=== PATIENT | female | born 1995 | race Caucasian/White ===

== ENCOUNTER 2019-12-10 09:52 | Emergency (ER) | payer OTHER, SELFPAY ==
[2019-12-10 10:03] VITALS: BP 123/73; PULSE 93; RESP 16; TEMP 37.1; O2SAT 100
--- NOTE | 2019-12-10 10:04 | ED.GENADULT ---
HPI - General Adult General Chief complaint: Skin/Abscess/Foreign Body Stated complaint: Cyst on Back Time Seen by Provider: 12/10/19 10:33 Source: patient and RN notes reviewed Mode of arrival: ambulatory Limitations: no limitations History of Present Illness HPI narrative: This patient has had a 5-year history of a cyst on the upper posterior thoracic area, but then during the past month the skin overlying that has become red and slightly tender and intermittently it is drained a fluid that sometimes a yellowish color. She has not had any fever. She has not had any history of eczema, psoriasis, or MRSA. She has not had any treatment for this. She has not had any other symptoms such as ear pain, nasal drainage, sore throat, fever, or cough. She has noticed no other skin lesions globally. She has had no known exposure to anyone with strep throat, mono, influenza, bronchitis, pneumonia that she is aware of. She has not been traveling. Related Data Allergies Allergy/AdvReac Type Severity Reaction Status Date / Time No Known Allergies Allergy Unverified 12/10/19 10:16 Review of Systems Review of Systems: Narrative: CONSTITUTIONAL: Denies fever, chills, or sweats. Noncontributory except as pertains to the past medical history and the history of present illness. EYES: Denies visual changes, redness, or discharge. ENT: Denies rhinorrhea, congestion, sore throat, or otalgia. CARDIOVASCULAR: Denies chest pain, palpitations, or edema. RESPIRATORY: Denies cough or dyspnea. GASTROINTESTINAL: Denies abdominal pain, nausea, vomiting, or diarrhea. GENITOURINARY: Denies dysuria or hematuria. SKIN: Denies rash or itching. MUSCULOSKELETAL: Denies back pain, joint pain, or myalgia. NEUROLOGIC: Denies headache, numbness, or weakness. PSYCHIATRIC: Denies anxiety or depression. [facility] Family History Family History (Updated 02/05/17 @ 23:56 by DOCTOR UNKNOWN) Grandparent Diabetes mellitus, Onset Age: 79 Cerebrovascular accident, Onset Age: 79 Other Family history of coronary artery disease Social History Social History Smoking status: Never smoker Second hand tobacco smoke exposure: No Alcohol intake: never Comments At time of signature, I have reviewed and agree with nursing past medical, surgical, social, and family history.Please see nursing chart for further information. There is no relevant family history pertinent to the presenting complaint. Exam Narrative: Exam Narrative: GENERAL: Well-appearing, well-nourished, and in no acute distress. HEAD: Normocephalic, atraumatic. EYES: PERRLA and EOMI. EARS: TM's clear bilaterally and the canals are clear. NOSE: Nares clear, no rhinorrhea or epistaxis. THROAT:Mucous membranes moist.Oropharynx normal without erythema or exudates. NECK: Supple. No adenopathy of the neck, supraclavicular, axillary, or inguinal areas. RESPIRATORY: No respiratory distress. Airway patent. Respirations non-labored. Clear to auscultation. There are no wheezes, no rales, no retractions, no use accessory muscle respirations. Patient's not cyanotic and not dyspneic. HEART: Regular rate and rhythm. No murmur heard. normal peripheral pulses. ABDOMEN: Soft, nontender, nondistended, normal active bowel sounds.No masses. NO rebound or guarding, No organomegaly. There is no CVA pain. No pain McBurney's point. She has a negative Diaz sign and negative Rovsing sign. There are no pulsatile masses no audible bruits. EXTREMITIES: No clubbing/cyanosis/ edema. Normal strength & range of motion. SKIN: Warm, dry.Normal Color. The skin exam shows that the patient has a 2 cm long by 1/2 cm wide sebaceous cyst with the overlying skin tissue mildly reddened and slightly tender to touch, but not severely so. There is no drainage noted today. There is no dressing on this and no drainage on her clothes either. There are no other skin lesions globally. There are no puncture de jesus or evidence of any insect bites. No e
== END 2019-12-10 10:45 | disposition home or self-care (01) ==
PROVIDERS: Emergency Provider Family Medicine
DX: L03.312 Cellulitis of back [any part except buttock and flank] (principal)
CPT/HCPCS: 99213; G0463

== ENCOUNTER 2019-12-19 19:12 | Emergency (ER) | payer OTHER, SELFPAY ==
--- NOTE | ~2019-12-19 | XR_ITS ---
XR abdomen/kub 1V 12/19/2019 22:25 Indication: Right-sided abdominal pain Procedure: KUB Comparison: CT dated 12/19/2019 Findings: There is a 7 mm right UVJ stone. There is a left renal stone measuring approximately 7 mm. There are left-sided pelvic phleboliths. Bowel gas pattern is nonobstructive. Lung bases unremarkable . Impression: 1: 7 mm right UVJ stone. 2: Left nephrolithiasis. Reviewed, dictated and finalized at location A. R PATTERN INSPECTOR Impression: 1: 7 mm right UVJ stone. 2: Left nephrolithiasis.
--- NOTE | ~2019-12-19 | CT_ITS ---
EXAMINATION: CT abdomen pelvis wo con DATE: 12/19/2019 21:13 INDICATION: Flank pain TECHNIQUE: Computed tomography (CT) of the abdomen and pelvis was performed without intravenous contr ast. The dose-length product was 888.25 mGy-cm. Automated exposure control and iterative reconstructi on technique were employed. COMPARISON: None. FINDINGS: Heart size is normal. No significant pleural or pericardial effusion. Lung bases are unrema rkable. No significant vascular abnormality. Fatty infiltration of the liver. Gallbladder is present. The spleen, pancreas, adrenal glands are unr emarkable. There are nonobstructing left renal stones, largest measuring 5 mm. There is a 6 x 3 mm ri ght UVJ stone with moderate right hydroureteronephrosis. There is right perinephric stranding. There is a small fecalith at the origin of the appendix. No evidence for acute appendicitis. Small amount o f free fluid in the pelvis. Prominent left ovary, likely containing a 3 cm cyst. There is inflammatio n adjacent to the proximal sigmoid colon, likely representing epiploic appendagitis rather than diver ticulitis. No free air. No acute osseous abnormality.. IMPRESSION: 1. 6 mm right UVJ stone with moderate right hydroureteronephrosis and perinephric edema. 2: Nonobstructing left nephrolithiasis. 3: Inflammatory changes adjacent to the proximal sigmoid colon, likely epiploic appendagitis rather t farias diverticulitis. 4: Probable 3 cm left ovarian cyst. Small amount of free fluid in the pelvis, likely physiologic. Reviewed, dictated and finalized at location A. TRONIC BENCH TECHNICIAN IMPRESSION: 1. 6 mm right UVJ stone with moderate right hydroureteronephrosis and perinephr ic edema. 2: Nonobstructing left nephrolithiasis. 3: Inflammatory changes adjacent to the proximal sigmoid colon, likely epiploic appendagitis rather than diverticulitis. 4: Probable 3 cm left ovarian cyst. Small amount of free fluid in the pelvis, l ikely physiologic.
[2019-12-19 19:20] VITALS: BP 130/79; PULSE 118; RESP 18; TEMP 36.2; O2SAT 100
--- NOTE | 2019-12-19 19:57 | ED.ABDPAIN ---
HPI - Abdominal Pain General Chief Complaint: Abdominal Pain Stated Complaint: abd pain Time Seen by Provider: 12/19/19 19:50 Source: patient Mode of arrival: ambulatory Limitations: no limitations History of Present Illness HPI narrative: A 24 y/o female presents to the ED with c/o cramping RUQ abdominal pain that radiates to her right flank and lower back. Pt states that the abdominal pain has been intermittent since September 2019. She notes that the flank pain is aggravated when she eats fast food. Pt adds that she has been avoiding fast food with some relief, but ate fast food this weekend when her family was in town. She reports that she ate a taco and a breakfast sandwich from [employer] this weekend. Pt states that she has never been formally diagnosed with IBS, but she believes she has it based on Google searches. Today, she notes that her episode started at 0930 and has been constant since. She adds that this is abnormal for her episodes, so she decided to come to the ED. Pt reports N/V and loose stools, but denies fever and dysuria. She adds that she has occasional diarrhea and constipation with her episodes, and her bowel movements normally alleviate the pain. Pt had a bowel movement today and it did not alleviate the abdominal pain which is abnormal for her. Her daughter has been sick recently, but with different symptoms. She is currently taking Ciprofloxacin for an infected sebaceous cyst with cellulitis. MD elicited complaint: abdominal pain Onset (ago): month(s) (3) Pain Consistency: intermittent Location: RUQ Severity: similar to previous episodes Quality: cramping Radiation: R flank and back (Lower) Exacerbating factors: eating (Fast food) Context: confirms sick contacts and confirms recent antibiotic use Associated symptoms: nausea, vomiting and other (Loose stools) Related Data Allergies Allergy/AdvReac Type Severity Reaction Status Date / Time No Known Allergies Allergy Unverified 12/19/19 19:38 Review of Systems Review of Systems: All systems reviewed & are unremarkable except as noted in HPI and below Constitutional: Constitutional: Denies fever(s) Gastrointestinal: Gastrointestinal: Reports abdominal pain (RUQ that radiates to right flank and lower back), Reports loose stools, Reports nausea and Reports vomiting Genitourinary: Genitourinary: Denies dysuria PMFSH Past Medical History Medical History (Updated 12/19/19 @ 22:14 by Bert Helton MD) Cellulitis Depression Thalassemia Surgical History Surgical History (Updated 12/19/19 @ 20:43 by Zhanna Grubbs) No pertinent past surgical history Family History Family History Grandparent Diabetes mellitus, Onset Age: 79 Cerebrovascular accident, Onset Age: 79 Other Family history of coronary artery disease Social History Social History Smoking status: Never smoker Second hand tobacco smoke exposure: No Alcohol intake: never Gender identity (if verbalized by the patient): Female Exam Const: General: healthy appearing, no acute distress and well developed Nutritional Appearance: well nourished Orientation/consciousness: patient oriented x3 (alert) and Other orientation findings (Alert) Limitations: no limitations HENMT: Head: normocephalic and atraumatic Ears: external ears normal General nose exam: No nasal discharge present and no epistaxis Face and sinus: face symmetric Mouth: Yes lip normal, Yes tongue normal and Yes moist mucous membranes Throat: other (No exudate, no erythema) Eyes: Conjunctivae: conjunctivae normal Sclera: sclerae normal EOM: EOMs intact bilaterally Neck: Neck: full ROM, no lymphadenopathy and supple Thyroid: thyroid normal Chest: Chest palpation & inspection: no tenderness Resp: Effort & Inspection: normal respiratory effort Auscultation: clear to auscultation bilaterally, no rales, no rhonchi, no
[2019-12-19 20:25] LABS: Basophils Percent Auto 0.1 % (0.2-1.2); Eosinophils Percent Auto 0.1 % (0-4.4); Hemoglobin 11.6 g/dL (12.0-15.0); Immature Granulocyte Absolute 0.04 K/mm3 (0.00-0.031); Immature Granulocyte Percent A 0.3 % (0-0.5); Lymphocytes Absolute Auto 0.95 K/mm3 (0.9-3.2); Lymphocytes Percent Auto 6.5 % (18.3-44.2); Mean Corpuscular HGB Conc 32.2 g/dl (32-36); Mean Corpuscular Hemoglobin 23.4 pg (26-34); Mean Corpuscular Volume 72.6 fl (80-100); Mean Platelet Volume 10.2 fl (7.4-10.4); Monocytes Absolute Auto 0.5 K/mm3 (0.1-0.6); Monocytes Percent Auto 3.6 % (2.6-8.5); Neutrophils Percent Auto 89.4 % (45.5-73.1); Platelet Count Result 257 k/mm3 (150-375); Red Blood Count 4.96 M/mm3 (4.2-5.4); Red Cell Distribution Width 14.5 % (11.5-14.5); White Blood Count 14.5 K/mm3 (4.5-10.0)
[2019-12-19 20:30] LABS: Add Urine Microscopic? YES; Appearance Urine Cloudy (Clear); Bilirubin Urine Negative (Negative); Blood Urine 3+ (Negative); Color Urine Yellow (Yellow); Glucose Urine UA Negative (Negative); Ketones Urine 2+ mg/dL (Negative); Leukocyte Esterase Ur Negative LEU/UL (Negative); Mucus Urine Few /lpf; Nitrate Urine Negative (Negative); Protein Urine 2+ mg/dL (Negative); RBC Urine >75 /hpf (0-2); Squamous Epithelial Cell Urine Moderate /hpf (Few); Urobilinogen Urine Negative mg/dL (<2.0)
[2019-12-19 20:31] LABS: Specific Grav Ur 1.032 (1.001-1.035)
[2019-12-19 20:37] LABS: Alanine Aminotransferase 24 U/L (4-35); Albumin Level 4.4 g/dL (3.5-5.1); Alkaline Phosphatase 112 U/L (38-126); Aspartate Amino Transferase 26 U/L (14-36); Bilirubin,Total 0.4 mg/dL (0.2-1.3); Blood Urea Nitrogen 14 mg/dL (7-17); Calcium 8.7 mg/dL (8.4-10.2); Carbon Dioxide 22 mmol/L (22-30); Chloride 101 mmol/L (98-107); Estimated CRCL calculation 103 ml/min; Estimated Glomerular Filt Rate > 60; Glucose 112 mg/dL (65-105); Lipase 28 U/L (23-300); Potassium 4.1 mmol/L (3.4-5.0); Sodium 138 mmol/L (137-145)
[2019-12-19] MEDS: KETOROLAC 30 MG/ML VIAL (*BKC) IV PUSH (21:17)
[2019-12-19] MEDS: TAMSULOSIN HCL 0.4 MG CAPSULE PO (21:54)
[2019-12-19 21:55] VITALS: BP 128/86; PULSE 99; O2SAT 100
== END 2019-12-19 22:37 | disposition home or self-care (01) ==
PROVIDERS: Emergency Provider Emergency Medicine
DX: N13.2 Hydronephrosis with renal and ureteral calculous obstruction (principal); R93.3 Abnormal findings on diagnostic imaging of other parts of digestive tract; R93.89 Abnormal findings on diagnostic imaging of other specified body structures
CPT/HCPCS: 36415; 74018; 74176; 80053; 81001; 81025; 83690; 85025; 87086; 96374; 99284; A9270; J1885

== ENCOUNTER 2019-12-22 07:43 | Outpatient (CLI) | payer OTHER, SELFPAY ==
--- NOTE | ~2019-12-22 | XR_ITS ---
XR abdomen/kub 1V 12/22/2019 08:03 INDICATION: Kidney stone follow-up TECHNIQUE: KUB COMPARISON: 12/19/2019 FINDINGS: Bowel gas pattern is normal. There is no evidence of free air, mass, organomegaly, ascites or obstruction. There is a 7 mm left renal stone, unchanged. Stable right UPJ stone. Left pelvic davin cification is nonspecific. Review of prior CT is not conclusive that this calcification is outside of the ureter. Consider correlation with CT urogram. The bones appear intact. IMPRESSION: 1: Stable right UVJ and left renal stones. Possible distal left ureteral stone versus phlebolith. Con green end worker correlation with CT urogram for confirmation.. Reviewed, dictated and finalized at location A. TUBER MACHINE IMPRESSION: 1: Stable right UVJ and left renal stones. Possible distal left ureteral stone versus phlebolith. Consider correlation with CT urogram for confirmation..
== END 2019-12-22 07:44 | disposition home or self-care (01) ==
PROVIDERS: Visit Provider Urology
DX: N20.0 Calculus of kidney (principal)
CPT/HCPCS: 74018

== ENCOUNTER 2020-01-05 07:25 | Outpatient (CLI) | payer OTHER, SELFPAY ==
--- NOTE | ~2020-01-05 | CT_ITS ---
EXAMINATION: CT abdomen pelvis wo/w con DATE: 01/05/2020 12:52 INDICATION: Bilateral nephrolithiasis. Hematuria. TECHNIQUE: Computed tomography (CT) of the abdomen and pelvis was performed without intravenous contr ast. CT of the abdomen and pelvis was then performed with a total of 130 mL Omnipaque-350 intravenous contrast using a double-bolus technique for simultaneous opacification of the renal parenchyma and r enal collecting system. Automated exposure control and iterative reconstruction technique were employ ed. The dose-length product was 2069.54 mGy-cm. COMPARISON: 12/19/2019 FINDINGS: Lung bases are clear. Heart size is normal. No pericardial or pleural effusion. Liver, gallbladder, s pleen, pancreas and bilateral adrenal glands are normal. Bilateral extrarenal pelvises sees. There is a nonobstructing 6 x 3 mm stone at the site of confluence of the major calyces of the lower and inte rpolar regions of the left kidney proximal to the extrarenal site of fusion with the major calyx clark ing from the upper pole. Additional 1 mm and 2 mm stones in the posterior minor calyx of the lower po le of the left kidney. No right-sided urolithiasis. Kidneys enhance symmetrically with no hydronephro sis. There is contrast opacification of the entire left and right ureters with no ureteral stones or urothelial irregularities. Bladder is normal with visible contrast opacified left-sided ureteral jet. No abnormal bowel wall thickening or obstruction. Improvement in small region of inflammatory strand ing along the anterior margin of the sigmoid colon consistent with resolving epiploic appendagitis. R etroverted uterus is normal. 1.8 cm intermediate attenuation lesion, most likely a hemorrhagic cyst, at the left adnexa in similar location as a larger previously lower attenuation 3.0 cm cyst. During f at fluid level within a 1.8 cm right ovarian dermoid. Small amount of likely physiologic free fluid i n the cul-de-sac. Bones are unremarkable. IMPRESSION: 1. Left sided nephrolithiasis with nonobstructing 6 x 3 mm stone at the junction of the major calyces of the mid and lower left kidney. 2. Interval improvement in epiploic appendagitis along the anterior margin of the proximal sigmoid co andree. 3. 1.8 cm right ovarian dermoid. 4. 1.8 cm intermediate attenuation left adnexal region at the site of a prior larger 3.0 cm fluid att enuation cyst most likely either hemorrhagic transformation or new hemorrhagic cyst. Could consider f ollow-up ultrasound in 8-12 weeks. Reviewed, dictated and finalized at location A. SIT MIX OPERATOR IMPRESSION: 1. Left sided nephrolithiasis with nonobstructing 6 x 3 mm stone at the junctio n of the major calyces of the mid and lower left kidney. 2. Interval improvement in epiploic appendagitis along the anterior margin of t he proximal sigmoid colon. 3. 1.8 cm right ovarian dermoid. 4. 1.8 cm intermediate attenuation left adnexal region at the site of a prior l arger 3.0 cm fluid attenuation cyst most likely either hemorrhagic transformati on or new hemorrhagic cyst. Could consider follow-up ultrasound in 8-12 weeks.
--- NOTE | ~2020-01-05 | XR_ITS ---
XR abdomen/kub 1V 01/05/2020 07:42 Indication: Kidney stones Procedure: KUB Comparison: 12/22/2019 Findings: There is a stone medial to the left kidney presumably in the renal pelvis measuring approxi mately 8 mm. There are bilateral pelvic calcifications, suspicious for distal ureteral stones. The st one in the left pelvis has migrated inferiorly. Bowel gas pattern is nonobstructive. Impression: 1: Probable bilateral UVJ stones. 2: Left nephrolithiasis. Reviewed, dictated and finalized at location B. ECUTTER ASSISTANT Impression: 1: Probable bilateral UVJ stones. 2: Left nephrolithiasis.
== END 2020-01-05 07:26 | disposition home or self-care (01) ==
PROVIDERS: Visit Provider Urology
DX: N20.0 Calculus of kidney (principal)
CPT/HCPCS: 74018; 74178; Q9967

== ENCOUNTER 2020-01-09 11:35 | Outpatient (CLI) | payer OTHER, SELFPAY | END 2020-01-09 11:36 | disposition home or self-care (01) | PROVIDERS: Visit Provider Urology | DX: N20.1 Calculus of ureter (principal) | CPT/HCPCS: 87086 ==

== ENCOUNTER 2020-01-17 01:35 | Day surgery (SDC) | payer OTHER, SELFPAY ==
[2020-01-09 09:16] VITALS: BMI 32.9
--- NOTE | ~2020-01-17 | XR_ITS ---
EXAMINATION: XR retrograde pyelo w/stent LT DATE: 01/17/2020 14:51 INDICATION: Left renal stone extraction and ureteral stent placement. TECHNIQUE: 101 fluoroscopic images of the abdomen and pelvis were obtained during procedure performed by Dr. Thomas. Radiologist was not present for the imaging or procedure. The amount of fluorosco py time used during this procedure was 2.2 minutes. COMPARISON: CT dated 01/05/2020 FINDINGS: [employer] images demonstrate bilateral internal ureteral stents in expected position. The stone appears t o be positioned next to the proximal tip of the left intraureteral stent, likely in a middle calyx. S ubsequent images demonstrate removal at both stents and advancement of a wire into an upper pole karen x of the left kidney. Retrograde contrast administration initially opacifies the mid and lower calyce s which demonstrate mild caliectasis and subsequently the upper pole calyces which appear normal. Fin ally a new left internal ureteral stent is placed with proximal unformed tip in a superior calyx and distal loop formed in the bladder. IMPRESSION: 1. Fluoroscopy utilized during bilateral internal ureteral stent removal, reported left renal stone e xtraction and left internal ureteral stent replacement in expected position. See procedure note for f urther detail. Reviewed, dictated and finalized at location A. IMPRESSION: 1. Fluoroscopy utilized during bilateral internal ureteral stent removal, repor jun left renal stone extraction and left internal ureteral stent replacement in expected position. See procedure note for further detail.
[2020-01-17 13:15] VITALS: BP 112/73; PULSE 81; RESP 16; TEMP 37.1; O2SAT 99
--- NOTE | 2020-01-17 13:28 | P.PNAN_ITS ---
Anes - Initial Pre Proc Eval Procedure: Operation Date: 01/17/20 14:00 Proposed Procedures p Cystoscopy, Left Ureteroscopy, Left Retrograde Pyelogram, Left Stone Extraction, Possible Left Stent Placement, With Right Stent Removal - Geraldine Thomas MD s Possible Holmium Laser Procedure - Geraldine Thomas MD Date/Time: 01/17/20 13:28 Surgeon: Geraldine Thomas MD Pre Op Diagnosis: Left Uteral Stone Patient Data Age: 24 Gender: F Height: 5 ft 5 in Weight: 89.81 kg Allergies Allergy/AdvReac Type Severity Reaction Status Date / Time No Known Allergies Allergy Verified 01/09/20 10:46 Home Medications Medication Instructions Recorded Confirmed Type hydrocodone-acetaminophen [[place]] 1 tablet PO Q4H PRN #10 tablet 12/19/19 01/09/20 Rx L.acid-L.casei-B.bif-B.andree-FOS 1 cap PO DAILY 01/09/20 01/09/20 History [Probiotic Blend] docusate sodium 100 mg PO BID 01/09/20 01/09/20 History multivitamin 1 tablet PO DAILY 01/09/20 01/09/20 History oxybutynin chloride 5 mg PO TID PRN 01/09/20 01/09/20 History norethindrone (contraceptive) 0.35 0.35 mg PO DAILY #84 tablet 01/15/20 Rx mg tablet fluconazole 150 mg tablet 150 mg PO ONCE #1 tablet 01/16/20 Rx Patient hx anesthesia problems: none Family hx anesthesia problems: none PMFSH Past Medical History Medical History Cellulitis Depression Kidney stones Thalassemia Vaginal delivery Surgical History Surgical History No pertinent past surgical history Family History Family History Grandparent Diabetes mellitus, Onset Age: 79 Cerebrovascular accident, Onset Age: 79 Other Family history of coronary artery disease Social History Social History Smoking status: Never smoker Second hand tobacco smoke exposure: No Alcohol intake: never Gender identity (if verbalized by the patient): Female Anes - Eval Final PreProcedure Day of Procedure 01/17/20 13:28 Patient weight: obese Heart: regular rate and rhythm Lungs: clear to auscultation Airway: Mallampati scale class II Neurological: alert and oriented Last oral intake: >/= 8 hours ASA classification: II Emergent: no Anesthetic plan: proceed Anesthesia type and monitoring: general LMA and standard monitoring Informed Consent: The patient's anesthetic plan and its attendant risks and benefits were discussed with the patient/family/POA. Questions were solicited and answers provided to the satisfaction of the patient/family/POA.
[2020-01-17] MEDS: LACTATED RINGERS 1,000 ML 30 ML IV CONT ×2 (13:30→14:49)
[2020-01-17] MEDS: ceFAZolin 2 GM/D5W 50 ML 2 GM/50 ML BAG IVPB (13:51)
[2020-01-17] MEDS: LIDOCAINE HCL 2% GEL UROJET 10 ML PKG MUCOUS MEM (14:37)
[2020-01-17 14:49] VITALS: BP 97/63; PULSE 137; RESP 12; TEMP 36.4; O2SAT 100
[2020-01-17 15:00] VITALS: BP 106/75; PULSE 101; RESP 16; O2SAT 100
--- NOTE | 2020-01-17 15:07 | SUR.PHASEI ---
1507 REPORT GIVEN TO VANITA Dixon RN.
[2020-01-17 15:20] VITALS: BP 116/68; PULSE 91; RESP 16; O2SAT 95
[2020-01-17 15:45] VITALS: BP 108/86; PULSE 77
--- NOTE | 2020-01-17 16:01 | OP_ITS ---
DATE OF PROCEDURE: 01/17/2020 PREOPERATIVE DIAGNOSIS: Bilateral nephrolithiasis. POSTOPERATIVE DIAGNOSIS: Bilateral nephrolithiasis. PROCEDURE PERFORMED: 1. Cystoscopy. 2. Right ureteral stent removal. 3. Left ureteroscopy. 4. Laser lithotripsy. 5. Stone extraction. 6. Left retrograde pyelogram. 7. Left ureteral stent exchange. INDICATION FOR PROCEDURE: The patient is a very pleasant 24-year-old lady. She has a history of nephrolithiasis. She underwent bilateral distal ureteroscopy last week, which cleared her right-sided stone burden. She did have residual left-sided stone burden. The risks and alternatives discussed with patient and patient agreed to proceed with left ureteroscopy today. Risk of procedure including, not limited to, infection, bleeding, pain, injury to surrounding structures, need for additional operations and she agrees to proceed. DESCRIPTION OF PROCEDURE: An informed consent was obtained. The patient was taken to the operating room and given preoperative IV antibiotics. She was induced anesthesia and placed in dorsal lithotomy position, prepped and draped in normal sterile fashion. We inserted a 20-Icelandic cystoscope through urethra into the bladder. We inspected the bladder, there were no mucosal abnormalities aside from the expected edema around the orifices and stent in place. With grasper, the stent was removed. The left ureteral stent was removed and pulled to the meatus. Wire was placed and we dilated a 10 coaxial dilator. We then inserted a flexible ureteroscope over a wire into the kidney. Inspection of the calices revealed a 6 mm stone in a midpole calyx and additional 3 mm stone in adjacent mid pole calyx. We used a laser fiber with a dusting current in order to fragment the stones into smaller pieces. All pieces were broken to be less than a millimeter in size and that should easily be passable. We grasped the largest pieces with a Zero tip basket and was sent as a benefits representative specimen. Inspection of each calyces under fluoroscopic guidance, no significant residual stone disease except for the dust from stone fragmentation. We placed a 4.8-Icelandic variable length stent curled up in the pole and curled in the bladder. The bladder was emptied, 10 cc lidocaine was instilled. The patient awakened and taken to the recovery room in stable condition. FLUIDS: Per anesthesia. COMPLICATIONS: None. ESTIMATED BLOOD LOSS: Minimal. FOLLOWUP: The patient will be discharged home today. She will follow up in the office in 1 week for ureteral stent removal. D I MT: Terese WEN
[2020-01-17 16:15] VITALS: BP 122/79; PULSE 87
== END 2020-01-17 16:37 | disposition home or self-care (01) ==
PROVIDERS: Visit Provider Urology
PROC: (CPT 52352; principal; 2020-01-17 14:00)
PROC: (CPT 52356; 2020-01-17 14:00)
DX: N20.0 Calculus of kidney (principal); F32.9 Major depressive disorder, single episode, unspecified; E66.9 Obesity, unspecified; Z68.31 Body mass index [BMI] 31.0-31.9, adult
CPT/HCPCS: 52356; 74420; 82365; 88300; A9270; C1769; C2617; J0131; J0690; J1100; J1885; J2250; J2405; J2704; J3010; J7120; Q9966

== ENCOUNTER 2020-02-20 09:29 | Outpatient (CLI) | payer OTHER, SELFPAY ==
--- NOTE | ~2020-02-20 | XR_ITS ---
XR abdomen/kub 1V DATE: 02/20/2020 09:48 INDICATION: Kidney stone follow-up. Hematuria. TECHNIQUE: AP projection, 2 views COMPARISON: 01/05/2020 CT abdomen pelvis noncontrast examination FINDINGS: Is far from the TCU small wires are noted away opacity approximately 2 cm from the vessels is requested to see this is a subtle difference in the right no obvious radiographic evidence of urin kay tract stones is detected. The psoas shadows are intact. No visceromegaly is evident other than apparent asymmetric prominence s ize of the left kidney compared to the right. IMPRESSION: Nonspecific abdomen Reviewed, dictated and finalized at Location A. Reviewed, dictated and finalized at location A. IMPRESSION: Nonspecific abdomen
== END 2020-02-20 09:30 | disposition home or self-care (01) ==
PROVIDERS: Visit Provider Urology
DX: N20.1 Calculus of ureter (principal)
CPT/HCPCS: 74018

== ENCOUNTER 2021-04-22 12:41 | Outpatient (CLI) | payer OTHER, SELFPAY ==
--- NOTE | ~2021-04-22 | XR_ITS ---
EXAMINATION: XR abdomen/kub 1V INDICATION: Right ureteral stone TECHNIQUE: Supine views of the abdomen were obtained on 2 radiographs. COMPARISON: 02/20/2020 FINDINGS: No urolithiasis is identified. The bowel gas pattern is normal. The visualized osseous stru ctures are unremarkable. IMPRESSION: 1. No urolithiasis identified. Reviewed, dictated and finalized at location A.
== END 2021-04-22 12:42 | disposition home or self-care (01) ==
LOC: ANHIMG 12:44
PROVIDERS: PCP Family Medicine; Visit Provider Urology
DX: N20.1 Calculus of ureter (principal)
CPT/HCPCS: 74018

== ENCOUNTER 2021-11-27 12:05 | Emergency (ER) | payer OTHER, SELFPAY ==
--- NOTE | ~2021-11-27 | XR_ITS ---
[id number] INDICATION: Posterior neck pain TECHNIQUE: 4 views of the cervical spine. FINDINGS: No prior studies for comparison. The cervical spine is visualized to the cervicothoracic junction. There is no prevertebral soft tiss ue swelling, listhesis, or loss of vertebral body height. Intervertebral disc spaces are normal. Th e osseous central canal is patent. No displaced cervical spine fractures are identified. IMPRESSION: 1. No acute osseous abnormality of the cervical spine. Reviewed, dictated and finalized at location B. EL SNIPPER
[2021-11-27 12:16] VITALS: BP 132/92; PULSE 113; RESP 20; TEMP 36.9; O2SAT 100
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
== END 2021-11-27 13:40 | disposition home or self-care (01) ==
LOC: ANHED 13:39
PROVIDERS: Emergency Provider Emergency Medicine; PCP Family Medicine
DX: M54.2 Cervicalgia (principal); F41.9 Anxiety disorder, unspecified; F32.9 Major depressive disorder, single episode, unspecified; V44.5XXA Car driver injured in collision with heavy transport vehicle or bus in traffic accident, initial encounter
CPT/HCPCS: 72040; 99283; L0140

== ENCOUNTER 2021-12-08 08:40 | Outpatient (CLI) | payer OTHER, SELFPAY ==
[2021-12-08 09:35] LABS: Alanine Aminotransferase 26 U/L (4-35); Albumin Level 4.3 g/dL (3.5-5.1); Alkaline Phosphatase 80 U/L (38-126); Anion Gap 4 mmol/L (8-16); Aspartate Amino Transferase 25 U/L (14-36); Bilirubin,Total 0.4 mg/dL (0.2-1.3); Blood Urea Nitrogen 17 mg/dL (7-17); Calcium 8.5 mg/dL (8.4-10.2); Carbon Dioxide 27 mmol/L (22-30); Chloride 105 mmol/L (98-107); Estimated Glomerular Filt Rate > 60; Glucose 126 mg/dL (65-110); Potassium 4.1 mmol/L (3.4-5.0); Sodium 136 mmol/L (137-145)
== END 2021-12-08 08:41 | disposition home or self-care (01) ==
PROVIDERS: PCP Family Medicine; Visit Provider Family Medicine
DX: F41.9 Anxiety disorder, unspecified (principal); Z79.899 Other long term (current) drug therapy
CPT/HCPCS: 36415; 80053

== ENCOUNTER 2022-01-02 07:39 | Outpatient (CLI) | payer OTHER, SELFPAY ==
[2022-01-02 08:51] LABS: Hemoglobin A1C 5.2 % (<5.7)
== END 2022-01-02 07:40 | disposition home or self-care (01) ==
LOC: ANHLAB 07:41
PROVIDERS: PCP Family Medicine; Visit Provider Family Medicine
DX: R73.09 Other abnormal glucose (principal); E66.9 Obesity, unspecified
CPT/HCPCS: 36415; 83036

== ENCOUNTER 2023-02-09 18:45 | Emergency (ER) | payer OTHER, SELFPAY ==
[2023-02-09 18:56] VITALS: BP 127/80; PULSE 102; RESP 16; TEMP 37.6; O2SAT 99
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
[2023-02-09] MEDS: TETANUS,DIPHTHERIA,AC PERTUSSIS ADULT (0.5 ML) BOOSTRIX IM (19:34)
[2023-02-09] MEDS: SILVER SULFADIAZINE 1% CR 50 GM JAR (*BKC) 1 APPLIC TOPICAL (19:35)
== END 2023-02-09 19:40 | disposition home or self-care (01) ==
PROVIDERS: Emergency Provider Nurse Practitioner; PCP Family Medicine
DX: T25.222A Burn of second degree of left foot, initial encounter (principal); X12.XXXA Contact with other hot fluids, initial encounter; Z23 Encounter for immunization
CPT/HCPCS: 90471; 90715; 99213; A9270; G0463

== ENCOUNTER 2023-06-04 08:09 | Outpatient (CLI) | payer OTHER, SELFPAY ==
[2023-06-04 08:42] LABS: Hematocrit 37.6 % (37.0-47.0); Hemoglobin 11.8 g/dL (12.0-15.0); Mean Corpuscular HGB Conc 31.4 g/dl (32-36); Mean Corpuscular Hemoglobin 23.5 pg (26-34); Mean Corpuscular Volume 74.9 fl (80-100); Platelet Count Result 260 k/mm3 (150-375); Red Blood Count 5.02 M/mm3 (4.2-5.4); Red Cell Distribution Width 14.1 % (11.5-14.5); White Blood Count 6.9 K/mm3 (4.5-10.0)
[2023-06-04 08:54] LABS: Alanine Aminotransferase 26 U/L (6-35); Albumin Level 4.3 g/dL (3.5-5.1); Alkaline Phosphatase 88 U/L (38-126); Anion Gap 9 mmol/L (8-16); Aspartate Amino Transferase 23 U/L (14-36); Bilirubin,Total 0.5 mg/dL (0.2-1.3); Blood Urea Nitrogen 15 mg/dL (7-17); Calcium 8.2 mg/dL (8.4-10.2); Carbon Dioxide 23 mmol/L (22-30); Chloride 107 mmol/L (98-107); Cholesterol 142 mg/dL (0-200); Estimated Glomerular Filt Rate > 60; Glucose 94 mg/dL (65-110); HDL Direct 43 mg/dL; Potassium 3.9 mmol/L (3.4-5.0); Sodium 139 mmol/L (137-145); Triglycerides 61 mg/dL (<150)
[2023-06-04 09:05] LABS: LDL Cholesterol Direct 71 mg/dL
[2023-06-04 09:45] LABS: Hemoglobin A1C 5.5 % (<5.7)
== END 2023-06-04 08:10 | disposition home or self-care (01) ==
LOC: ANHLAB 08:09
PROVIDERS: PCP Family Medicine; Visit Provider Family Medicine
DX: E66.9 Obesity, unspecified (principal); F41.9 Anxiety disorder, unspecified; R73.09 Other abnormal glucose; Z79.899 Other long term (current) drug therapy
CPT/HCPCS: 36415; 80053; 80061; 83036; 84443; 85027

== ENCOUNTER 2023-07-07 08:54 | Outpatient (CLI) | payer OTHER, SELFPAY ==
[2023-07-07 20:03] LABS: Alanine Aminotransferase 26 U/L (6-35); Albumin Level 4.1 g/dL (3.5-5.1); Alkaline Phosphatase 81 U/L (38-126); Anion Gap 10 mmol/L (8-16); Aspartate Amino Transferase 55 U/L (14-36); Bilirubin,Total 0.5 mg/dL (0.2-1.3); Blood Urea Nitrogen 19 mg/dL (7-17); Calcium 8.5 mg/dL (8.4-10.2); Carbon Dioxide 27 mmol/L (22-30); Chloride 103 mmol/L (98-107); Estimated Glomerular Filt Rate > 60; Glucose 107 mg/dL (65-110); Sodium 140 mmol/L (137-145)
== END 2023-07-07 08:55 | disposition home or self-care (01) ==
LOC: ANHGOSHLAB 08:55
PROVIDERS: PCP Family Medicine; Visit Provider Nurse Practitioner
DX: R74.8 Abnormal levels of other serum enzymes (principal); R10.11 Right upper quadrant pain
CPT/HCPCS: 36415; 80053

== ENCOUNTER → 2023-07-09 08:46 | Outpatient (CLI) | payer OTHER, SELFPAY ==
--- NOTE | ~2023-07-09 | US_ITS ---
Limited Abdominal Sonogram: Real-time sonographic imaging of the right upper quadrant was performed. Clinical History: Abdominal pain Findings: The liver appears slightly heterogeneous, with no evidence of mass lesion or bile duct dil atation. Main portal vein demonstrates normal direction of flow. The gallbladder is well distended, a nd appears normal with no evidence of gallstone or wall thickening. The common bile duct measures 4 m m. The visualized pancreas, aorta, and IVC are unremarkable. Impression: Possible fatty infiltration of the liver. Reviewed, dictated and finalized at location M. Impression: Possible fatty infiltration of the liver.
== END ==
PROVIDERS: PCP Family Medicine; Visit Provider Nurse Practitioner
DX: R10.11 Right upper quadrant pain (principal)
CPT/HCPCS: 76705

== ENCOUNTER 2024-03-13 07:54 | Outpatient (CLI) | payer OTHER, SELFPAY ==
[2024-03-13 08:51] LABS: Hematocrit 38.2 % (37.0-47.0); Hemoglobin 11.6 g/dL (12.0-15.0); Mean Corpuscular HGB Conc 30.4 g/dl (32-36); Mean Corpuscular Hemoglobin 22.7 pg (26-34); Mean Corpuscular Volume 74.9 fl (80-100); Platelet Count Result 260 k/mm3 (150-375); Red Cell Distribution Width 13.9 % (11.5-14.5); White Blood Count 5.9 K/mm3 (4.5-10.0)
[2024-03-13 09:06] LABS: Alanine Aminotransferase 22 U/L (6-35); Albumin Level 4.2 g/dL (3.5-5.1); Alkaline Phosphatase 90 U/L (38-126); Anion Gap 5 mmol/L (4-12); Aspartate Amino Transferase 21 U/L (14-36); Bilirubin,Total 0.4 mg/dL (0.2-1.3); Blood Urea Nitrogen 18 mg/dL (7-17); Calcium 8.5 mg/dL (8.4-10.2); Carbon Dioxide 25 mmol/L (22-30); Chloride 106 mmol/L (98-107); Cholesterol 145 mg/dL (0-200); Estimated Glomerular Filt Rate > 60; Glucose 98 mg/dL (65-110); HDL Direct 59 mg/dL; Potassium 4.2 mmol/L (3.4-5.0); Sodium 136 mmol/L (137-145); Triglycerides 56 mg/dL (<150)
[2024-03-13 09:18] LABS: LDL Cholesterol Direct 82 mg/dL
[2024-03-13 09:46] LABS: Vitamin D 25 Hydroxy 28.7 ng/mL
== END 2024-03-13 07:55 | disposition home or self-care (01) ==
LOC: ANHLAB 07:56
PROVIDERS: PCP Family Medicine; Visit Provider Nurse Practitioner
DX: Z00.00 Encounter for general adult medical examination without abnormal findings (principal); E55.9 Vitamin D deficiency, unspecified
CPT/HCPCS: 36415; 80053; 80061; 82306; 84443; 85027

== ENCOUNTER 2025-04-10 08:21 | Outpatient (CLI) | payer OTHER, SELFPAY ==
--- OUTSIDE RECORDS SUMMARY | 2025-04-10 08:31 | XMS_ITS | Clinical Summary ---
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 Gender Identity Not on file Sexual Orientation Not on file Plan of Treatment Health Maintenance Due Date Last Done Comments Hepatitis C Virus (HCV) Screening 1994 Pap Smear 2015 Influenza Immunization (#1) 07/02/202408/02, 09/19/2019, 09/30/2017 SARS-COV-2 Immunization ( season) 2024 08/21/2021, 02/17/2021, 01/27/2021 Cervical Cancer Screening (CCS) 2024 HPV/Cotest 2024 Respiratory Syncytial Virus (RSV) Immunization (Adult) (1 - 1-dose 75+ series) 2069 Hepatitis B Immunization Completed 995, 1994, 1994 DTaP/Tdap/Td Immunization Discontinued 2017, 03/02/2000, 11/29/1995, Additional history exists TdaP Immunization Completed 11/23/2017 Meningococcal Immunization (ACWY) Aged Out No longer eligible based on patient's age to complete this topic Pneumococcal Immunization Combined Aged Out No longer eligible based on patient's age to complete this topic Rotavirus Immunization Aged Out No lo nger eligible based on patient's age to complete this topic
--- OUTSIDE RECORDS SUMMARY | 2025-04-10 08:31 | XMS_ITS | Clinical Summary ---
Author Organization [employer] [address] [facility] [address] [place] [address] Phone Care Team Providers Care Microarray Specialist Name Role Phone Unavailable Primary Care Provider Unavailabl e Social History Tobacco Use Types Packs/Day Years Used Date Smoking Tobacco: Never Assessed Comments Unknown Sex and Gender Information Value Date Recorded Sex Assigned at Not on file Legal Sex Female 11:55 AM CDT Gender Identity Not on file Sexual Orientation Not on file Plan of Treatment Health Maintenance Due Date Last Done Comments DTAP/TDAP/TD VACCINES (1 - Tdap) 2013 HEPATITIS B VACCINES (1 of 3 - 19+ 3-dose series) 2013 HPV/Cotest (21-29) 2015 INFLUENZA VACCINE (#1) 2024 CERVICAL CANCER SCREENING 2024 HPV/Cotest (30-65) 2024 PAP SMEAR 2024 HPV VACCINES Aged Out No longer eligi ble based on patient's age to complete this topic Insurance [facility] OPTIONS PPO [id number]
[2025-04-10 09:01] LABS: Hematocrit 36.1 % (37.0-47.0); Hemoglobin 11.2 g/dL (12.0-15.0); Mean Corpuscular Hemoglobin 23.3 pg (26-34); Mean Corpuscular Volume 75.1 fl (80-100); Mean Platelet Volume 9.7 fl (7.4-10.4); Platelet Count Result 280 k/mm3 (150-375); Red Blood Count 4.81 M/mm3 (4.2-5.4); Red Cell Distribution Width 14.6 % (11.5-14.5); White Blood Count 7.8 K/mm3 (4.5-10.0)
[2025-04-10 09:21] LABS: Alanine Aminotransferase 25 U/L (6-35); Albumin Level 3.9 g/dL (3.5-5.1); Alkaline Phosphatase 93 U/L (38-126); Anion Gap 6 mmol/L (4-12); Aspartate Amino Transferase 29 U/L (14-36); Bilirubin,Total 0.3 mg/dL (0.2-1.3); Blood Urea Nitrogen 17 mg/dL (7-17); Calcium 8.6 mg/dL (8.4-10.2); Carbon Dioxide 25 mmol/L (22-30); Chloride 107 mmol/L (98-107); Cholesterol 170 mg/dL (0-200); Estimated Glomerular Filt Rate > 60; Glucose 93 mg/dL (65-110); HDL Direct 64 mg/dL; Potassium 4.1 mmol/L (3.4-5.0); Sodium 138 mmol/L (137-145); Triglycerides 55 mg/dL (<150)
[2025-04-10 09:31] LABS: LDL Cholesterol Direct 84 mg/dL
[2025-04-10 09:40] LABS: Vitamin D 25 Hydroxy 26.5 ng/mL
== END 2025-04-10 08:22 | disposition home or self-care (01) ==
LOC: ANHLAB 08:22
PROVIDERS: PCP Family Medicine; Visit Provider Nurse Practitioner
DX: Z00.00 Encounter for general adult medical examination without abnormal findings (principal); E55.9 Vitamin D deficiency, unspecified
CPT/HCPCS: 36415; 80053; 80061; 82306; 84443; 85027

== ENCOUNTER 2025-04-16 09:59 | Outpatient (CLI) | payer OTHER, SELFPAY ==
--- OUTSIDE RECORDS SUMMARY | 2025-04-16 10:46 | XMS_ITS | Clinical Summary ---
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
--- OUTSIDE RECORDS SUMMARY | 2025-04-16 10:46 | XMS_ITS | Clinical Summary ---
Author Organization [employer] [address] [facility] [address] [place] [address] Phone Care Team Providers Care Microfiche Duplicator Name Role Phone Unavailable Primary Care Provider [...] patient's age to complete this topic Insurance [facility] OPTIONS PPO [id number]
[2025-04-16 11:52] LABS: Iron 117 ug/dL (37-170)
[2025-04-16 12:03] LABS: Percent Iron Saturation 41 % (20-50)
[2025-04-18 12:44] LABS: Red Blood Cell Folate 604 ng/mL RBC (>280)
== END 2025-04-16 10:00 | disposition home or self-care (01) ==
LOC: ANHLAB 10:00
PROVIDERS: PCP Family Medicine; Visit Provider Nurse Practitioner
DX: D64.9 Anemia, unspecified (principal)
CPT/HCPCS: 36415; 82607; 82747; 83540; 83550